=== PATIENT | female | born 1995 | race Caucasian/White ===

== ENCOUNTER 2016-11-22 18:56 | Emergency (ER) | payer OTHER ==
[~2016-11-22] VITALS: Ht 165.1 cm; Wt 57.7 kg
[~2016-11-22 18:56] MED LIST: CYCL10TA9 PO
[2016-11-22 19:37] VITALS: BP 124/78; PULSE 93; RESP 15; O2SAT 100
--- NOTE | 2016-11-22 21:33 | ED.REPORT ---
HPI-General Illness Date of Service Nov 22, 2016 ED Provider: Ruiz Garcia MD 21 year old female with a history of ovarian cysts presents to the ER referred from urgent care accompanied by her mother complaining of five days of fever and right low back and flank pain. Associated symptom of nausea. Patient was seen yesterday at urgent care and treated for UTI with Bactrim and promethazine after her urinalysis was positive for blood and protein. She also had an US at that time that was negative for kidney stones. Nursing Notes Stated Complaint: KIDNEY PAIN Chief Complaint: Female Abdominal Pain Nursing Notes Reviewed: Yes Allergies: Coded Allergies: Penicillins (Verified Allergy, Unknown, 10/04/16) amoxicillin (Verified Allergy, Unknown, Rash, 10/04/16) ranitidine (Verified Allergy, Unknown, 10/04/16) Scheduled PRN Cyclobenzaprine (Cyclobenzaprine) 10 Mg Tablet 10 MG PO TID PRN PRN Spasm General Time Seen by MD: 21:30 Chief Complaint Back pain, Fever Hx Obtained From: Patient Arrived By: Walk-in Sudden in Onset?: No Onset Occurred: 5 days ago Symptom Duration: Since onset Location: : Back (Right, Lower) Quality: Painful Severity: Current: Moderate Severity: Maximum: Moderate Recent Healthcare: Recent doctor visit Past Medical History Past Medical History Depression and anxiety Ovarian cysts Past Surgical History denies Smoking History Never Smoker Social History Alcohol Use: Denies alcohol use Ambulatory Status Independent Review of Systems Full Review of Systems Constitutional: Reports: Fever Respiratory: Denies: Non-productive cough, Shortness of breath GI: Reports: Nausea, Denies: Abdominal pain, Constipation, Diarrhea Female: Reports: Flank pain (Right) Musculoskeletal: Reports: Back pain Complete sys rev & neg: except as marked. Physical Exam Vital Signs Vital Signs Date Time Temp Pulse Resp B/P Pulse Ox O2 Delivery O2 Flow Rate FiO2 11/23/16 00:53 79 16 110/63 97 Room Air 11/22/16 19:37 37.6 93 15 124/78 100 Room Air Initial VS: Reviewed, Vital signs normal Head / Eyes: Atraumatic, Normocephalic Neck: Supple, Non-tender, Full range of motion Respiratory: Breath sounds normal, Clear to auscultation, No respiratory distress Cardiovascular: Regular rate & rhythm, Heart sounds normal, Intact distal pulses Extremities: Vascular intact, Neuro intact, No swelling, No tenderness Skin: Warm, Dry, No cyanosis Neurologic: Alert, Oriented, Nonfocal Psychiatric: Mood/affect normal, Behavior normal, Normal thought content General/Constitutional: Awake, Alert, Well developed, Well nourished Abdomen: Soft, No guarding, No rebound, No distention Tenderness/Guarding/Rebound: Positive: Tender RUQ... (Moderate) Back: Full range of motion, No midline vertebral tend Right CVA tenderness Interpretation & Diagnostics Interpretation & Diagnostics: US Abdomen, Interpreted by radiologist. CONCLUSION: Normal study. Electronically signed by Billy Velez MD Lab Results Interpretation Result Diagram: 11/22/16219911/22/162199 Test 11/22/16 21:32 11/22/16 21:48 11/22/16 22:00 Hold Urine Received (Received) Urine Color Yellow (YELLOW) Urine Appearance Clear (CLEAR,HAZY) Urine pH 6.0 (5.0-8.0) Urine Specific [place] >1.030 (1.003-1.035) Urine Protein Negativemg/dL (NEG,TRACE) Urine Glucose (UA) Negativemg/dL (NEGATIVE) Urine Ketones Negativemg/dL (NEGATIVE) Urine Occult Blood Negative (NEGATIVE) Urine Nitrite Negative (NEGATIVE) Urine Bilirubin Negative (NEGATIVE) Urine Urobilinogen Normalmg/dL (NORMAL) Urine Leukocyte Esterase Negative (NEGATIVE) Urine RBC 0-2/hpf (0-2) Urine WBC 0-5/hpf (0-5) Urine Epithelial Cells Few/hpf (NONE-MOD) Urine Crystals None seen (NONE SEEN) Urine Bacteria Few/hpf (NONE-FEW) Urine Hyaline Casts None/lpf (NONE) Urine Granular Casts None seen (NONE SEEN) Urine Waxy Casts None seen (NONE SEEN) Urine Red Blood Cell Casts None seen (NONE SEEN) Urine White Blood Cell Casts None seen (NONE SEEN) Urine Mucus Present (None Seen) Urine Trichomonas None seen (NONE SEEN) Urine Yeast None (NONE SEEN) Urinalysis Comment None Urine Culture Reflexed Not indicated White Blood Count 5.7th/mm3 (3.8-10.1) Red Blood Count 4.41mil/mm3 (3.90-5.20) Hemoglobin 12.4g/dL (12.0-15.6) Hematocrit 37.6% (35.0-46.0) Mean Corpuscular Volume 85.3fL (81-100) Mean Corpuscular Hemoglobin 28.1pg (27.0-35.0) Mean Corpuscular Hemoglobin Concent 33.0% (32.0-37.0) Red Cell Distribution Width 13.0% (12.3-15.4) Platelet Count 293bil/L (150-400) Neutrophils (%) (Auto) 56.1% (40-74) Lymphocytes (%) (Auto) 34.6% (14-46) Monocytes (%) (Auto) 7.3% (4-12) Eosinophils (%) (Auto) 1.6% (0-5) Basophils (%) (Auto) 0.2% (0-3) Hold Purple Top Tube Received (Received) Hold Blue Top Tube Received (Received) Sodium Level 134mEq/L (134-144) Potassium Level 4.3mEq/L (3.5-5.2) Chloride Level 99mEq/L (97-108) Carbon Dioxide Level 22mmol/L (18-29) Blood Urea Nitrogen 9mg/dL (6-20) Creatinine 0.65mg/dL (0.57-1.00) Estimat Glomerular Filtration Rate 162mL/min (>59) Glucose Level 144mg/dL (60-99) Calcium Level 8.9mg/dL (8.5-10.1) Magnesium Level 2.2mg/dL (1.6-2.6) Total Bilirubin 0.2mg/dL (0.0-1.2) Aspartate Amino Transf (AST/SGOT) 17U/L (0-50) Alanine Aminotransferase (ALT/SGPT) 12U/L (0-32) Alkaline Phosphatase 49U/L (25-150) Total Protein 7.0g/dL (6.4-8.4) Albumin 3.3g/dL (3.4-5.0) Lipase 28U/L (13-60) Hold Red Top Tube Received (Received) Hold [place] Top Tube Received (Received) Hold [place] Top Tube Received (Received) Lab Results Interpretation: UA negative Urinalysis Interpretation Urinalys reviewed and NL CT Abd / Pelvis Interpretation CONCLUSION: Appendix not identified, however no secondary signs of acute appendicitis are seen. Abundant retained stool throughout the colon compatible constipation. Trace free fluid within the pelvis is likely [employer] in nature. No hydronephrosis or nephrolithiasis. Electronically signed by Billy Velez MD Study type: Abdominal CT IV contrast Interpretation / Wet Read by: Interpret - Radiologist Re-Eval/Medical Decision Med Decision/Clinical Course 21-year-old female who was seen at urgent care and started on an antibiotic for UTI. However, she has had increasing abdominal pain. She is quite tender on exam. Urine is unremarkable. Ultrasound is negative. CT scan was done because of the degree of tenderness on exam. The only finding is increased stool in the colon. She will be discharged home with MiraLAX. Continue her antibiotic. Time of Eval: 22:54 Re-Evaluation/Progress Note: Discussed lab and US results and need for CT abdomen. Patient is amenable to the plan. Time of Eval: 00:36 Re-Evaluation/Progress Note: Discussed CT results and plan to discharge. Patient is amenable to the plan. Return precautions given. All other questions addressed. Counseled Regarding: Diagnosis, Lab results, Need for follow-up, When/why to return to ED Discharge & Departure Primary Impression: Abdominal pain Abdominal location: generalized Qualified Code: R10.84 - Generalized abdominal pain Additional Impression: Constipation Constipation type: unspecified constipation type Qualified Code: K59.00 - Constipation, unspecified Disposition: Home Discharge Condition All VS Reviewed: Yes Condition: Stable Patient Instructions: High Fiber Diet (ED) Additional Instructions: None of the testing shows a serious or surgical cause of abdominal pain. You have excessive stool throughout the colon, and that may be causing your discomfort. Recommend MiraLAX 17 g of powdered mixed with 8 ounces of water up to 4 times daily until you have a soft consistency stool. Follow-up with your regular doctor if you have persistent pain that does not resolve. Call me at [phone] between the hours of 9 PM and 6 AM tonight or tomorrow night if you have any questions or concerns. Referrals: OTHER,PHYSICIAN (PCP) (Family) Scribe Attestation Portions of this note were transcribed by Ike Cobb. I, Dr. Garcia, personally performed the history, physical exam and medical decision-making; I reviewed and confirmed the accuracy of the information in the transcribed note. Signed by: Charis Sesay. 11/23/2016, 00:37 Ruiz Garcia MD Nov 22, 2016:33 IKE COBB Nov 22, 2016 21:36
[2016-11-22 22:09] LABS: BASOPHILS % (AUTO) 0.2 % (0-3); EOSINOPHILS % (AUTO) 1.6 % (0-5); MONOCYTES % (AUTO) 7.3 % (4-12); Mean Corpuscular Hemoglobin 28.1 pg (27.0-35.0); Mean Corpuscular Volume 85.3 fL (81-100); NEUTROPHILS % (AUTO) 56.1 % (40-74); Platelet Count 293 bil/L (150-400)
[2016-11-22 22:16] LABS: APPEARANCE,URINE CLEAR (CLEAR,HAZY); COLOR,URINE YELLOW (YELLOW); OCCULT BLOOD,URINE NEGATIVE (NEGATIVE)
[2016-11-22 22:17] LABS: UROBILINOGEN,URINE NORMAL (NORMAL)
[2016-11-22 22:32] LABS: Magnesium 2.2 mg/dL (1.6-2.6)
[2016-11-22] MEDS ORDERED: Ondansetron 2 mg/mL 2 mL Inj IVPUSH PRN (23:00)
[2016-11-22] MEDS ORDERED: Iohexol 300 mg/mL 30 mL Inj PO ONE (23:00)
[2016-11-23 00:53] VITALS: BP 110/63; PULSE 79; RESP 16; O2SAT 97
--- NOTE | 2016-11-23 08:06 | DRSVH ---
PROCEDURE: US ABDOMEN INDICATIONS: RUQ tenderness TECHNIQUE: Real-time scanning was performed of the abdominal and retroperitoneal organs, with image documentatio n. COMPARISON: None. FINDINGS: Liver length: 14.00 cm Gallbladder Wall Thickness: 2.10 mm CHD: 3.70 mm CBD: 2.40 mm Spleen length: 8.61 cm Right kidney length: 10.49 cm Left kidney length: 10.26 cm Aorta(Proximal): 1.77 cm Aorta(Mid): 1.41 cm Aorta(Distal): 1.40 cm RCIA: 7 mm LCIA: 7.50 mm Liver: Liver is normal in size and homogeneous in echotexture. Gallbladder: Gallbladder is sonographically normal. No gallstones. No gallbladder wall thickening. N o pericholecystic fluid. No sonographic Carrillo sign. Biliary ducts: Intrahepatic bile ducts are non-dilated. Extrahepatic bile duct caliber is normal. Normal is 6-7 mm or less in diameter, or 10 mm or less post-cholecystectomy. Pancreas: Visualized portions of the pancreas are sonographically normal. Spleen: Spleen is normal in size and homogeneous in echotexture. Kidneys: Kidneys are normal in size and echotexture. No hydronephrosis or nephrolithiasis. No abilio d masses. Aorta: Visualized aorta is normal in caliber at less than 3 cm. Iliacs: Proximal common iliac arteries are normal in caliber at less than 2.5 cm. IVC: Intrahepatic inferior vena cava is patent. Miscellaneous: No free abdominal fluid. IMPRESSION: No sonographic abnormality identified. Dictated by: Tati Taylor MD, PhD on 11/23/2016 at 8:04 Approved by: Tati Taylor MD, PhD on 11/23/2016 at 8:04
--- NOTE | 2016-11-23 14:10 | DRSVH ---
PROCEDURE: CT ABDOMEN AND PELVIS WITH CONTRAST ([id number]) INDICATIONS: abdominal pain, normal US TECHNIQUE: After the administration of oral and intravenous contrast, 5 mm thick sections acquired from the diap hragms to the symphysis. 5 mm thick coronal and sagittal reformats were performed. For radiation do se reduction, the following was used: automated exposure control, adjustment of mA and/or kV accordi ng to patient size. COMPARISON: None. FINDINGS: Image quality: Excellent. ABDOMEN: Lung bases: Lung bases are clear. Heart size is normal. Solid organs: Liver and spleen are normal in size and enhancement. Gallbladder is unremarkable. Bi liary system is non-dilated. Pancreas enhances normally. No adrenal nodules. Kidneys are normal in size and enhancement, without hydronephrosis. Peritoneum and bowel: Stomach, small bowel, and colon loops are normal in caliber and wall thickness . No free fluid or air. Significant stool is present throughout the colon. There is no obstruction. Technique is not definitively identified. No right lower quadrant inflammatory change. Nodes and vessels: No retroperitoneal or mesenteric adenopathy. Aorta and inferior vena cava are no rmal in caliber. Miscellaneous: No ventral hernias. PELVIS: Genitourinary: Bladder wall thickness is normal. Miscellaneous: No inguinal hernias or adenopathy. Bones: No suspicious bony lesions. No vertebral body compression fractures. IMPRESSION: 1. Significant stool consistent with constipation. No obstruction. 2. No visualized nephrolithiasis. Dictated by: Sofia Guy M.D. on 11/23/2016 at 14:08 Approved by: Sofia Guy M.D. on 11/23/2016 at 14:08
== END 2016-11-23 00:55 | disposition home or self-care (01) ==
LOC: SED 18:56
DX: K59.00 Constipation, unspecified (principal); R10.84 Generalized abdominal pain; R11.0 Nausea; Z88.0 Allergy status to penicillin; Z88.1 Allergy status to other antibiotic agents
CPT/HCPCS: 36415; 74177; 76700; 80053; 81000; 81025; 83690; 83735; 85025; 96374; 96375; 99285; J2405; Q9967

== ENCOUNTER 2017-06-21 03:03 | Day surgery (SDC) | payer OTHER ==
[2017-06-21] VITALS (17 sets, daily range): BP systolic 105–133; BP diastolic 49–79; PULSE 112–136; RESP 12–18; O2SAT 97–100
[~2017-06-21] VITALS: Ht 165.1 cm; Wt 59.0 kg
[~2017-06-21 03:03] MED LIST changes: +ETHI1TAB25 PO; +NAPR250T PO
[2017-06-21] MEDS ORDERED: Propofol 10,000 mCg/mL 20 mL Inj ONE (03:04)
[2017-06-21] MEDS ORDERED: MetoCLOpramide 5 mg/mL 2 mL Inj ONE (03:04)
[2017-06-21] MEDS ORDERED: Ondansetron 2 mg/mL 2 mL Inj ONE (03:04)
[2017-06-21] MEDS ORDERED: fentaNYL-PF 50 mCg/mL 2 mL Inj ONE (03:04)
[2017-06-21] MEDS ORDERED: Dexamethasone 4 mg/mL Inj ONE (03:04)
[2017-06-21] MEDS ORDERED: Lactated Ringer's 1,000 ML IV ONE (06:00)
[2017-06-21 11:53] LABS: BASOPHILS % (AUTO) 0.2 % (0-3); EOSINOPHILS % (AUTO) 0.6 % (0-5); MONOCYTES % (AUTO) 6.9 % (4-12); Mean Corpuscular Volume 84.1 fL (81-100); NEUTROPHILS % (AUTO) 65.5 % (40-74); Platelet Count 248 bil/L (150-400)
--- NOTE | 2017-06-21 11:56 | NUR ---
[facility] Patients admitted to [facility] at 1130 for cardiac ablation. Accompanied by SO/Satish and parents. Patient denies pain. Consent confirmed. HL x 2 placed and labs obtained. ECG12 complete. History and medications reviewed. Pre-procedure teaching done and questions answered.
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
[2017-06-21 12:07] LABS: INR 0.95 ratio
[2017-06-21] MEDS ORDERED: Heparin 10,000 Unit/1,000 mL NS Premix IV ONE (12:20)
[2017-06-21] MEDS ORDERED: Vancomycin 1,000 mg Inj ONE (12:59)
[2017-06-21] MEDS ORDERED: Lactated Ringer's 500 ML IV PRN (13:19)
[2017-06-21] MEDS ORDERED: Lactated Ringer's 1,000 ML IV SCH (13:19)
[2017-06-21] MEDS ORDERED: hydrOXYzine Inj 50 MG/1 mL SDV IM PRN (13:20)
[2017-06-21] MEDS ORDERED: EPHEDrine Sulfate 50 mg/mL Inj IVPUSH PRN (13:20)
[2017-06-21] MEDS ORDERED: fentaNYL-PF 50 mCg/mL 2 mL Inj IVPUSH PRN (13:20)
[2017-06-21] MEDS ORDERED: HYDROmorphone 1 mg/mL Inj IVPUSH PRN (13:20)
[2017-06-21] MEDS ORDERED: Phenylephrine 10,000 mCg/mL Inj IVPUSH PRN (13:20)
[2017-06-21] MEDS ORDERED: EPHEDrine Sulfate 50 mg/mL Inj IM PRN (13:20)
[2017-06-21] MEDS ORDERED: Ondansetron 2 mg/mL 2 mL Inj IVPUSH PRN (13:20)
--- NOTE | 2017-06-21 16:02 | PROCED ---
[address] [address] PROCEDURE NOTE PATIENT: MEKHI CHANEL : 1995 MR#: [id number] ADMIT: 06/21/2017 JOB ID: [id number] DATE OF SERVICE: 06/21/2017 PREOPERATIVE DIAGNOSIS(ES): 1. Tachycardia. 2. Syncope. POSTOPERATIVE DIAGNOSIS(ES): Normal electrophysiology study. PROCEDURES PERFORMED: 1. Comprehensive electrophysiology study with left atrial pacing recording via the coronary sinus catheter. 2. Arrhythmia provocation with isoproterenol infusion. 3. Fluoroscopy. SURGEON: Jose Garcia MD, electrophysiology attending. ASSISTANTS: Justice Garcia. ANESTHESIA: General endotracheal anesthesia was undertaken for this case. INDICATION: The patient is a pleasant 21-year-old woman with a structurally normal heart and episodic recurrent tachycardia associated with syncope. After discussion of risks and benefits of EP study, she opted to proceed. PROCEDURAL DESCRIPTION: Following informed signed consent, the patient was taken to the EP laboratory in a fasting, nonsedated state where she was prepped and draped in the usual sterile fashion. The bilateral groins were infiltrated with 1% lidocaine. Then, using modified Seldinger technique, two 6-Italian sheaths were inserted in the left femoral vein, and a 7 and 8-Italian sheaths were inserted into the right femoral vein. Under fluoroscopic guidance, a deflectable decapolar catheter was advanced in the coronary sinus with most proximal bipoles at the os of the sinus. A Kary quadripolar catheter was advanced to the RV apex, and a CRD2 quadripolar catheter was advanced to the His position. A comprehensive electrophysiology study was undertaken with right atrial pacing recording, right ventricular pacing recording, His bundle recording and left atrial pacing three pacing recording via the coronary sinus catheter. Ventricular pacing showed a concentric atrial activation pattern with a retrograde jump. Antegrade conduction showed an antegrade jump without echoes or sustainable AV kyler reentry tachycardia. Aggressive induction maneuvers were then performed both from the ventricles and atria both on and off isoproterenol to a dose of 4 mcg/minute. Single, double and triple extrastimuli were done on and off isoproterenol. Despite these aggressive maneuvers, no sustainable atrial or ventricular dysrhythmias were invoked. As such, the procedure was completed. All catheters and sheaths were removed. Manual pressure was held for hemostasis. The patient was transferred to the [facility] for monitoring, bedrest and discharge. COMPLICATIONS: None. ESTIMATED BLOOD LOSS: Negligible. FINDINGS: 1. Baseline rhythm was sinus with an RR interval of 742 msec, LA 143 msec, QRS 80 msec, QT 381 msec. 2. Intracardiac intervals: AH interval 70 msec, HV 52 msec. 3. Retrograde conduction: Atrial activation was concentric. VA Wenckebach was seen at 430 msec. 4. Antegrade conduction: AV Wenckebach at 340 msec. An antegrade jump was seen without inducible AV kyler reentrant tachycardia or echoes. IMPRESSION: Normal electrophysiology study without inducible ventricular or atrial dysrhythmia. PLAN: 1. Bedrest x4 hours. 2. Recovery and discharge. 3. Follow up with myself or Julius Bullock PA-C in clinic in four weeks. ATTENDING STATEMENT: Jose Garcia MD, electrophysiology attending, was present for and supervised/performed all aspects of this procedure.
[2017-06-21] MEDS ORDERED: Isoproterenol 200 mCg/50 mL D5W IV IV ONE (16:44)
--- NOTE | 2017-06-21 18:23 | PCM.ANEP1 ---
Post Anesthesia PACU Phase 1 Assessment Date of Service: Jun 21, 2017 Vital Signs Vital Signs Date Time Temp Pulse Resp B/P Pulse Ox O2 Delivery O2 Flow Rate FiO2 06/21/17 18:01 131 16 105/65 06/21/17 18:01 131 16 105/65 97 Room Air 06/21/17 17:02 112 17 121/72 06/21/17 17:01 112 17 121/72 97 Room Air 06/21/17 16:33 118 14 118/69 06/21/17 16:31 118 14 118/69 97 Room Air 06/21/17 16:00 129 16 118/71 06/21/17 16:00 129 16 118/71 98 Room Air 06/21/17 15:46 116 16 124/77 06/21/17 15:45 116 16 124/77 99 Room Air 06/21/17 15:30 123 14 119/62 06/21/17 15:29 123 14 119/62 99 Room Air 06/21/17 15:15 130 12 114/65 06/21/17 15:15 130 12 114/65 100 Room Air 06/21/17 15:10 123 14 126/54 98 Room Air 06/21/17 15:00 124 14 124/69 06/21/17 15:00 124 14 124/69 98 Room Air 06/21/17 14:56 37.1 136 15 126/49 98 Room Air 06/21/17 11:34 121 16 133/79 06/21/17 11:29 37.3 121 16 133/79 100 Room Air Anesthetic Administered: GA Level of Alertness: Awake, talking SANDERS's with Equal Strength: Yes Pain: No Nausea or Vomiting: Yes (treated) CV Function & Hydration Stable: Yes Airway Device: none Oxygen Delivery: Room Air Lungs: Clear to Auscultation, Normal Air Movement Dermatome Level: Full Sensation PACU Phase 2 Assessment Complications: No Follow up Care: No Patient Instructions Provided: N/A Castro Powell MD Jun 21, 2017 18:23
[2017-06-21] MEDS ORDERED: CYCL10TA9 PO (18:35)
--- NOTE | 2017-06-21 19:14 | NUR ---
[facility] Patient returned from label operator at 1455. Bilateral groin venous puncture without bleeding or hematoma. Taking PO. Void pr bedpan X 2. Denies pain. Prior to discharge ambulatory without problem. Instructions reviewed, written information given and questions answered. Addendum: 06/21/17 at 1916 by PRITI LEWIS RN Home with family at 1914
== END 2017-06-21 23:59 | disposition home or self-care (01) ==
LOC: SOUO 03:03
PROVIDERS: ATTEND Internal Medicine Cardiovascular Disease
DX: R00.0 Tachycardia, unspecified (principal); R55 Syncope and collapse
CPT/HCPCS: 36415; 80048; 84703; 85025; 85610; 93005; 93620; 93621; 93623; C1730; C1732; J1100; J1644; J2250; J2405; J2704; J2765; J3010

== ENCOUNTER → 2017-07-31 | Day surgery (SDC) | payer OTHER ==
[2017-07-31] VITALS (7 sets, daily range): BP systolic 116–126; BP diastolic 60–70; PULSE 88–105; RESP 13–18; O2SAT 100
[~2017-07-31] VITALS: Ht 165.1 cm; Wt 58.3 kg
[~2017-07-31] MED LIST changes: +0.9% Sodium Chloride 1,000 ML IV PRN; +0.9% Sodium Chloride 1,000 ML IV SCH; +Bupivacaine-MPF 0.5% 30 mL Inj ONE; -CYCL10TA9 PO; +HYDROcodone-APAP 5-325 mg Tablet PO PRN; +Heparin 10,000 Unit/1,000 mL NS Premix IV ONE; -NAPR250T PO; +NAPR250T5 PO; +Ondansetron 2 mg/mL 2 mL Inj IVPUSH PRN; +fentaNYL-PF 50 mCg/mL 2 mL Inj ONE
[2017-07-31 07:52] LABS: BASOPHILS % (AUTO) 0.2 % (0-3); EOSINOPHILS % (AUTO) 0.4 % (0-5); MONOCYTES % (AUTO) 6.2 % (4-12); Mean Corpuscular Hemoglobin 28.5 pg (27.0-35.0); Mean Corpuscular Volume 85.8 fL (81-100); NEUTROPHILS % (AUTO) 65.7 % (40-74); Platelet Count 236 bil/L (150-400)
--- NOTE | 2017-07-31 08:04 | NUR ---
Admitted for a loop recorder for > frequency of passing out. Recently here for a EP mapping study by Dr Garcia. Loop recorder is for a future evaluation and treatment plan.
[2017-07-31 08:10] LABS: INR 0.94 ratio
--- NOTE | 2017-07-31 10:14 | NUR ---
Returned from loop recorder placement at 0950 - no complications. 1 hour recovery.
--- NOTE | 2017-07-31 10:39 | OP ---
[address] [address] OPERATIVE REPORT PATIENT: MEKHI CHANEL : 1995 MR#: [id number] ADMIT: 07/31/2017 JOB ID: [id number] DATE OF SURGERY: 07/31/2017 PREOPERATIVE DIAGNOSIS(ES): Syncope. POSTOPERATIVE DIAGNOSIS(ES): Syncope. PROCEDURE PERFORMED: Implantable loop recorder implantation. SURGEON: Jose Garcia MD STRAIGHTENING MACHINE OPERATOR: Dayanara Roberts. IMPLANTED DEVICE: Medtronic Reveal LINQ, model LNQ11, serial #[id number]. ANESTHESIA: Bolus dosing of Versed and fentanyl were used to achieve an appropriate level of sedation. INDICATION: The patient is a pleasant, 21-year-old, with recurrent syncope for which noninvasive monitoring has been unrevealing. After discussion of the risks and benefits of loop recorder implantation, she opted to proceed. PROCEDURAL DESCRIPTION: Following informed signed consent, the patient was taken to the EP laboratory in a fasting and sedated state where she was prepped and draped in usual sterile fashion. The left parasternal region was infiltrated with 1% lidocaine. Then, using the provided Medtronic scalpel, a small incision was made to the left of the sternum in the 4th intercostal space. The loop recorder was then implanted using the insertion tool. Manual pressure was held for hemostasis. The device was interrogated and showed excellent sensing. The small incision was approximated with Steri-Strips. The patient tolerated the procedure well. COMPLICATIONS: None. ESTIMATED BLOOD LOSS: Negligible. IMPRESSION: Successful loop recorder implantation. PLAN: 1. Recovery and discharge from the [facility]. 2. Doxycycline 100 p.o. daily x1 week. 3. Pacemaker Clinic in one week. 4. Follow up with Julius Bullock in six weeks. ATTENDING STATEMENT: Jose Garcia MD, Electrophysiology attending was present for and supervised/performed all aspects of this procedure.
--- NOTE | 2017-07-31 11:07 | NUR ---
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 D/C instructions reviewed with patient and family. Ed teaching from [employer] tech on loop recorder device.
== END | disposition home or self-care (01) ==
LOC: SOUO 00:46
PROVIDERS: ATTEND Internal Medicine Cardiovascular Disease
DX: R55 Syncope and collapse (principal); R00.0 Tachycardia, unspecified
CPT/HCPCS: 33282; 36415; 80048; 84703; 85025; 85610; 99152; C1764; J1644; J2250; J3010